=== PATIENT | female | born 1960 | race Caucasian/White ===

== ENCOUNTER 2016-07-23 17:28 | Emergency (ER) | payer OTHER ==
[~2016-07-23 17:28] MED LIST: ASPIR-LOW81 MG PO; CRESTOR10 MG PO; CRESTOR20 MG PO; FLEXERIL 10 MG10 MG PO; GLUCOPHAGE 500500 MG PO; IBUPROFEN800 MG PO; LOMOTIL 2.5-0.1 EACH PO; OXYCONTIN40 MG PO; PERCOCET 10-321 EACH PO; TORSEMIDE20 MG PO; VICTOZA 3-0.6 MG/0.1 SQ
== END 2016-07-23 19:37 | disposition left against medical advice (07) ==
LOC: ER1 17:28
DX: Z53.21 Procedure and treatment not carried out due to patient leaving prior to being seen by health care provider (principal)
CPT/HCPCS: 82962

== ENCOUNTER → 2016-07-27 | Outpatient (CLI) | payer OTHER | LOC: MRI 07-11 10:15 → EMI 07-20 18:15 | DX: M48.02 Spinal stenosis, cervical region (principal); M54.2 Cervicalgia; G89.4 Chronic pain syndrome; M54.16 Radiculopathy, lumbar region; M50.20 Other cervical disc displacement, unspecified cervical region | CPT/HCPCS: 72141 ==

== ENCOUNTER → 2020-06-29 | Outpatient (CLI) | payer OTHER ==
[~2020-06-29] MED LIST changes: +CEFUROXIME500 MG PO; +KEFLEX CAP 500500 MG PO
== END ==
LOC: HEART 5 06-22 15:00
DX: R00.2 Palpitations (principal); R00.0 Tachycardia, unspecified

== ENCOUNTER → 2020-08-25 | Outpatient (CLI) | payer OTHER | LOC: KOH-I 08-15 11:00 | DX: M51.36 Other intervertebral disc degeneration, lumbar region (principal); M51.26 Other intervertebral disc displacement, lumbar region; Z98.1 Arthrodesis status | CPT/HCPCS: 72148 ==

== ENCOUNTER 2020-11-22 14:25 | Emergency (ER) | payer OTHER ==
[2020-11-22 15:28] LABS: HEMOGLOBIN 14.2 gm/dl (12.3-15.3); RED BLOOD COUNT 4.75 M/UL (4.00-5.10)
[2020-11-22 15:49] LABS: BUN/CREATININE RATIO 15 (0-10)
== END 2020-11-22 17:23 | disposition home or self-care (01) ==
LOC: ER1 14:25
PROVIDERS: Physician Assistant
DX: R07.89 Other chest pain (principal); E11.9 Type 2 diabetes mellitus without complications; Z90.49 Acquired absence of other specified parts of digestive tract; Z88.2 Allergy status to sulfonamides; Z88.0 Allergy status to penicillin
CPT/HCPCS: 71045; 80053; 82550; 82553; 83874; 84484; 85025; 85379; 93005; 99285

== ENCOUNTER 2021-06-08 03:20 | Emergency (ER) | payer OTHER ==
[2021-06-08 04:30] LABS: HEMOGLOBIN 12.2 gm/dl (12.3-15.3); RED BLOOD COUNT 4.41 M/UL (4.00-5.10); WHITE BLOOD COUNT 10.3 K/UL (4.5-11.0)
[2021-06-08 04:56] LABS: BUN/CREATININE RATIO 27 (0-10)
[2021-06-08] MEDS ORDERED: MIRALAX17 GM PO (06:43)
[2021-06-08] MEDS ORDERED: OMNICEF 300 MG300 MG PO (06:44)
== END 2021-06-08 10:45 | disposition home or self-care (01) ==
LOC: ER1 03:20
PROVIDERS: Physician Assistant
DX: N39.0 Urinary tract infection, site not specified (principal); K59.00 Constipation, unspecified
CPT/HCPCS: 80053; 81001; 82150; 83605; 83690; 85025; 87086; 93005; 96374; 99284; J0696; J1885; Q9967

== ENCOUNTER 2021-06-08 20:22 | Emergency (ER) | payer OTHER ==
[~2021-06-08 20:22] MED LIST changes: +MIRALAX17 GM PO; +OMNICEF 300 MG300 MG PO
[2021-06-08 21:12] LABS: HEMOGLOBIN 12.1 gm/dl (12.3-15.3); RED BLOOD COUNT 4.33 M/UL (4.00-5.10)
[2021-06-08 21:13] LABS: WHITE BLOOD COUNT 14.8 K/UL (4.5-11.0)
[2021-06-08 21:31] LABS: BUN/CREATININE RATIO 18 (0-10)
== END 2021-06-09 01:20 | disposition home or self-care (01) ==
LOC: ER1 20:22
PROVIDERS: Emergency Medicine
DX: K56.41 Fecal impaction (principal)
CPT/HCPCS: 80048; 85025; 96372; 96374; 96375; 99284; J1885; J2212; J2270; J2405